=== PATIENT | female | born 1940 | race Caucasian/White ===

== ENCOUNTER → 2016-06-26 | Outpatient (CLI) | payer MEDICARE, BC ==
--- NOTE | 2016-06-23 12:16 | NUR ---
NN PT REPORTS HAVING CHEST PRESSURE 3-4 TIMES A YEAR AND TAKES NITROGLYCERIN WITH THESE EPISODES AND THAT IT DOES RESOLVE. SHE HAS NOT SEEN A PAINT TINTER IN 3-[address] MENDEZ FOLLOWS HER CARE. SPOKE WITH COLLETTE KANG WHO STATED HE WOULD NEED SOMETHING IN WRITING FROM THE PAINT TINTER THAT SHE IS RELEASE FROM CARE OR SOME CARDIAC CLEARANCE. LEFT A MESSAGE AT DR. KIMBLE OFFICE WITH THIS INFORMATION.
[~2016-06-26] MED LIST: CETI10CA19 PO; CHOL20002 PO; DILT120C47 PO; FAMO20TA8 PO; FISH1CAP22 PO; FURO-35 PO; LEVO50TA72 PO; LOSA50TA17 PO; METF500T4 PO; NITR0.4T39 SL; OMEP20CA81 PO; POTA10TA16 PO; ROSU5TAB3 PO
== END ==
LOC: EDSTATUS 08:00 → NSC 08:00
DX: Z53.9 Procedure and treatment not carried out, unspecified reason (principal)